=== PATIENT | female | born 1960 | race Caucasian/White ===

== ENCOUNTER 2018-04-05 18:00 | Emergency (ER) | payer MEDICAID ==
[~2018-04-05] VITALS: Ht 154.9 cm; Wt 63.0 kg
[2018-04-05 18:07] VITALS: Ht 154.9 cm; Wt 63.0 kg
[2018-04-05] MEDS ORDERED: DIPHENHYDRAMINE 50 MG INJ IV STA (19:11)
[2018-04-05] MEDS ORDERED: KETOROLAC 30 MG INJ IV STA (19:11)
[2018-04-05] MEDS ORDERED: SOD CHLORIDE 0.9% 1,000 ML IV STA (19:11)
[2018-04-05] MEDS: PROCHLORPERAZINE 10 MG INJ IV STA ×2 (19:35→19:36)
[2018-04-05] MEDS ORDERED: IBUP-1542 PO (20:58)
--- NOTE | 2018-04-05 21:00 | ERD ---
ER Documentation Chief Complaint Chief Complaint BOOTHE WITH TINITUS/NAUSEA/VOMITING/BLURRY VISION X 3 MONTHS HPI 57-year-old female is here with migraine headache. She also has ringing in her ears is been going on for 3 months. Headache is gradual in onset and bilateral frontal with intermittent blurry vision. She was seen on Wednesday at an outside facility and had a negative CT scan. She is taking Imitrex without any relief. Excedrin helps her a little bit but she is taking double the recommended dose. She is also taking Zofran which helps. ROS All systems reviewed and are negative except as per history of present illness. Medications Home Meds Active Scripts Ibuprofen* (Motrin*) 600 Mg Tab, 600 MG PO Q6H PRN for PAIN AND OR ELEVATED TEMP, #30 TAB Prov:JC FULLER PA-C 04/05/18 PMhx/Soc History of Surgery: Yes (APPY, ) Hx Miscellaneous Medical Probl: Yes (GERD) Hx Alcohol Use: No Hx Substance Use: No Hx Tobacco Use: No Smoking Status: Never smoker FmHx Family History: No diabetes Physical Exam Vitals Vital Signs Date Temp Pulse Resp B/P (MAP) Pulse Ox O2 O2 Flow FiO2 Time Delivery Rate 04/05/18 98.8 82 18 149/74 99 18:07 (99) Physical Exam Const: No acute distress Head: Atraumatic Eyes: Normal Conjunctiva ENT: Normal External Ears, Nose and Mouth. Neck: Full range of motion. No meningismus. Resp: Clear to auscultation bilaterally Cardio: Regular rate and rhythm, no murmurs Neuro: M/S: Alert and oriented Face: EOMI, face and pharynx with normal sensation and function Motor: Normal strength throughout Sensation: Normal sensation throughout Speech: Normal Cerebel: Normal coordination Normal gait Normal finger to nose Result Diagram: 04/05/18192904/05/181929 Results 24 hrs Laboratory Tests Test 04/05/18 19:30 White Blood Count 8.5 10^3/ul Red Blood Count 4.64 10^6/ul Hemoglobin 13.6 g/dl Hematocrit 41.0 % Mean Corpuscular Volume 88.4 fl Mean Corpuscular Hemoglobin 29.3 pg Mean Corpuscular Hemoglobin Concent 33.2 g/dl Red Cell Distribution Width 13.3 % Platelet Count 271 10^3/UL Mean Platelet Volume 9.8 fl Immature Granulocytes % 0.100 % Neutrophils % 53.3 % Lymphocytes % 33.1 % Monocytes % 7.3 % Eosinophils % 5.5 % Basophils % 0.7 % Nucleated Red Blood Cells % 0.0 /100WBC Immature Granulocytes # 0.010 10^3/ul Neutrophils # 4.5 10^3/ul Lymphocytes # 2.8 10^3/ul Monocytes # 0.6 10^3/ul Eosinophils # 0.5 10^3/ul Basophils # 0.1 10^3/ul Nucleated Red Blood Cells # 0.0 10^3/ul Sodium Level 139 mmol/L Potassium Level 3.8 mmol/L Chloride Level 101 mmol/L Carbon Dioxide Level 29 mmol/L Anion Gap 9 Blood Urea Nitrogen 14 mg/dl Creatinine 0.86 mg/dl Est Glomerular Filtrat Rate mL/min > 60 mL/min Glucose Level 93 mg/dl Calcium Level 9.5 mg/dl Current Medications Medications Dose Sig/Anatoly Start Time Status Last (Trade) Ordered Route PRN Stop Time Admin Dose Reason Admin Sodium 1,000 ml @ Q1H STAT 04/05/18 DC 04/05/18 Chloride 1,000 mls/hr IV 19:11 19:30 04/05/18 20:10 10 mg ONCE STAT 04/05/18 DC 04/05/18 Prochlorperaz IV 19:11 19:36 ine 04/05/18 19:13 (Compazine Inj) Ketorolac 30 mg ONCE STAT 04/05/18 DC 04/05/18 Tromethamine IV 19:11 19:29 (Toradol) 04/05/18 19:13 25 mg ONCE STAT 04/05/18 DC 04/05/18 Diphenhydrami IV 19:11 19:30 ne HCl 04/05/18 19:13 (Benadryl) Procedures/MDM The differential diagnosis includes but is not limited to subdural hematoma, epidural hematoma, intracerebral hemorrhage, occult trauma, CVA, meningitis, encephalitis, hypertension, tension, migraine, cluster, cervical spine disease, and others. Patient just had a negative CT scan on Wednesday so CT was not repea hyacinth. She was given IV fluids, Benadryl, Toradol, and Compazine with significant improvement. She is discharged with Motrin. Patient counseled regarding my diagnostic impression and care plan. Prior to discharge all questions answered. Pt agrees with treatment plan and understands strict return precautions. Pt is instructed to follow up with primary care provider within 24-48 hours. Precautionary instructions provided including instructions to return to the ER if not improving or for any worsening or changing symptoms or concerns. Departure Diagnosis: Primary Impression: Migraine Condition: Stable Patient Instructions: Migraine Headache: Stages and Treatment Additional Instructions: Llame al doctor MAANABELLA y laverne ian BUCK PARA DENTRO DE 1-2 BERGER.Dgale a la sec retaria que nosotros le instruimos hacer esta buck.Avise o llame si kaufman condicin se empeora antes de la buck. Regresa aqui si peor o no mejor. JC FULLER PA-C Apr 05, 2018 21:00
[2018-04-05 21:07] VITALS: BP 127/66; PULSE 65; RESP 18
[2018-04-27] MEDS ORDERED: IBUP-1542 PO (16:45)
[2018-04-27] MEDS ORDERED: ACET325T33 PO (17:06)
[2018-04-27] MEDS ORDERED: LORA-441 PO (17:06)
== END 2018-04-05 21:09 | disposition home or self-care (01) ==
LOC: FTE 18:00
DX: G43.909 Migraine, unspecified, not intractable, without status migrainosus (principal)
CPT/HCPCS: 36415; 80048; 85025; 96374; 96375; J0780; J1200; J1885; J7030; Z7502